=== PATIENT | male | born 1980 | race Caucasian/White ===

== ENCOUNTER 2021-08-19 13:07 | Emergency (ER) | payer OTHER ==
[2021-08-19] MEDS ORDERED: HYDROCODON-ACE1 EAC4 PO ×2 (14:33→14:50)
== END 2021-08-19 14:55 | disposition home or self-care (01) ==
LOC: ER1 13:07
DX: S46.911A Strain of unspecified muscle, fascia and tendon at shoulder and upper arm level, right arm, initial encounter (principal); E11.9 Type 2 diabetes mellitus without complications; F17.210 Nicotine dependence, cigarettes, uncomplicated; V86.59XA Driver of other special all-terrain or other off-road motor vehicle injured in nontraffic accident, initial encounter
CPT/HCPCS: 73030; 99283